=== PATIENT | female | born 1945 | race Caucasian/White ===

== ENCOUNTER 2018-10-05 06:50 | Day surgery (SDC) | payer MEDICARE ==
--- NOTE | 2018-09-28 18:38 | HP ---
CC: Dr. Peterson; Dr. Oglesby. ADMITTING HISTORY AND PHYSICAL: DATE OF ADMISSION: 10/05/18 ADMITTING DIAGNOSES: 1. History of superficial bladder cancer. 2. Bladder lesion. PLANNED PROCEDURE: Cystoscopy, excision biopsy of bladder lesion. SURGEON: Dr. Oglesby. 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 She has done well up u ntil recently then a cystoscopy revealed an approximately 3 cm area in the anterior wall on the right side of the bladder and she is now being brought in for a excision biopsy for the same. PAST MEDICAL HISTORY: Significant for: 1. History of right breast cancer. 2. History of back injuries. 3. History of superficial bladder cancer. 4. Anxiety. 5. High cholesterol. PAST SURGICAL HISTORY: Significant for transurethral resection of bladder tumor in 2014, right lumpe ctomy, hysterectomy and cervical fusion. MEDICATIONS ON ADMISSION: 1. Celecoxib 200 mg every day p.r.n. 2. Risedronate 150 mg 1 tablet once a month. 3. Pravastatin 20 mg daily. 4. Amlodipine 5 mg daily. 5. Pantoprazole 20 mg daily. 6. Voltaren gel p.r.n. 7. Sertraline 50 mg 3 tablets daily. 8. Klonopin 0.5 mg 1 to 2 by mouth every night as needed. 9. Xanax 0.25 mg 3 times a day as needed. ALLERGIES AND INTOLERANCES: ZITHROMAX, IBUPROFEN, LEVAQUIN, ERYTHROMYCIN. SMOKING HISTORY: She is a nonsmoker. FAMILY HISTORY: Negative for kidney tumor or kidney stones or bladder tumor. REVIEW OF SYSTEMS: She denies any chest or shortness of breath. PHYSICAL EXAMINATION GENERAL: Reveals a pleasant elderly lady. VITAL SIGNS: Blood pressure is 130/80, pulse 58 per minute and regular, temperature 96.4, oxygen sat uration 97% on room air. LUNGS: Clear bilaterally. CARDIOVASCULAR: Regular rate and rhythm. S1, S2. ABDOMEN: Soft without masses. IMPRESSION: A 73-year-old nonsmoker with possible recurrent superficial bladder cancer. PLANNED PROCEDURE: Cystoscopy and excision biopsy of bladder lesion. [id number]/[facility] #: [id number]
[~2018-10-05 06:50] MED LIST: Buffered Lidocaine 1% SYRIN* 1 ML/SYRINGE INTRADERM ONE; Lactated Ringers 1000 ML Bag* 1,000 ML IV SCH; Sodium Citrate/Citric Acid* 15 ML UDC PO ONE
[2018-10-05] MEDS ORDERED: Sodium Citrate/Citric Acid* 15 ML UDC ONE (06:56)
[2018-10-05] MEDS ORDERED: Gentamicin ADULT (*) 120 MG in NS 0.9% 100 ML* 100 ML IVPB ONE (07:00)
[2018-10-05] MEDS ORDERED: Midazolam* 1 MG/ML 2 ML VIAL (2 MG) ONE (08:22)
[2018-10-05] MEDS ORDERED: Lidocaine 2% PF * 5 ML VIAL ONE (08:22)
[2018-10-05] MEDS ORDERED: fentaNYL* 50 MCG/ML 2 ML VIAL (100 MCG VIAL) ONE (08:22)
[2018-10-05] MEDS ORDERED: Propofol* 10 MG/ML 20 ML BTL ONE ×2 (08:22)
[2018-10-05] MEDS ORDERED: fentaNYL* 50 MCG/ML 2 ML VIAL (100 MCG VIAL) IV PRN (09:23)
[2018-10-05] MEDS ORDERED: Naloxone* 0.4 MG/ML 1 ML VIAL IV PRN (09:23)
[2018-10-05] MEDS ORDERED: Ondansetron INJ* 2 MG/ML VIAL IV PRN (09:23)
[2018-10-05 11:27] VITALS: BP 123/70
--- NOTE | 2018-10-05 20:30 | OP ---
CC: Dr. Pasha Peterson * DATE OF OPERATION: 10/05/18 - [facility] DATE OF : 45 SURGEON: Porfirio Oglesby MD ANESTHESIOLOGIST: Dr. Abraham. ANESTHESIA: General. PRE-OP DIAGNOSES: 1. Bladder lesion. 2. History of bladder cancer. POST-OP DIAGNOSES: OPERATIVE PROCEDURES: Cystoscopy, excision biopsies of bladder lesion, and fulguration. COMPLICATIONS: None. POSTOPERATIVE CONDITION: Stable. BLOOD LOSS: Minimal. OPERATIVE FINDINGS: Approximately 2 to 3 cm area anterior bladder wall right side with thickened raised hyperemic mucosa. INDICATIONS: Kellie Rodríguez is a 73-year-old lady with a history of superficial high-grade bladder cancer, who was recently seen in followup and noted to have the above mentioned findings on cystoscopy. DESCRIPTION OF PROCEDURE: After induction of general anesthesia, the patient was placed in dorsal lithotomy position. Sequential compression devices were in place and functioning. Initial cystoscopy revealed urethral stenosis. The bladder was examined. The right and left ureteral orifices are in normal position with clear efflux noted. The previously noted bladder lesion was again noted on the right side in the anterior bladder wall. Using the biopsy forceps, excision biopsies were performed and abnormal area was completely excised and sent for histopathology. Next, using a Bugbee electrocautery, the edges and base were carefully fulgurated and hemostasis appeared satisfactory at the end of the procedure. A 20-Persian Gonzales was placed for bladder drainage. The patient tolerated the procedure satisfactorily and was transferred back to the recovery area in stable condition. [id number]/[facility] #: [id number] MTDD
== END 2018-10-05 11:00 | disposition home or self-care (01) ==
LOC: OR 06:50
PROVIDERS: ATTEND Urology
DX: N32.9 Bladder disorder, unspecified (principal); F41.9 Anxiety disorder, unspecified; E78.00 Pure hypercholesterolemia, unspecified; Z85.3 Personal history of malignant neoplasm of breast; Z85.51 Personal history of malignant neoplasm of bladder
CPT/HCPCS: A9270-GY; J1580; J2250; J2704; J3010